=== PATIENT | female | born 1935 | race Caucasian/White ===

== ENCOUNTER → 2018-12-07 14:46 | Day surgery (SDC) | payer MEDICARE, BC ==
[~2018-12-07 14:46] MED LIST: Lidocaine 2% PF * 5 ML VIAL ONE; Propofol* 10 MG/ML 20 ML BTL ONE; Sodium Citrate/Citric Acid* 15 ML UDC ONE; Succinylcholine* 20 MG/ML 10 ML VIAL ONE; ceFAZolin 2 GM in NS PREMIX(*) 2 GM/100 ML BAG IVPB ONE; fentaNYL* 50 MCG/ML 2 ML VIAL (100 MCG VIAL) ONE
[2018-12-07 19:10] VITALS: BP 139/80
--- NOTE | 2018-12-08 03:38 | OP ---
ATE OF OPERATION: 12/07/18 - [facility] DATE OF : 37 SURGEON: Isacc Guerra MD OIL FIELD PUMPER: ALFREDA Hopson. A physician clothing sales assistant was required for assistance with patient positioning and manipulation. ANESTHESIOLOGIST: Dr. Edward Encinas. PRE-OP DIAGNOSIS: Left shoulder anterior glenohumeral joint dislocation, subacute. POST-OP DIAGNOSIS: Left shoulder anterior glenohumeral joint dislocation, subacute. OPERATIVE PROCEDURE: Closed relocation with manipulation, left shoulder glenohumeral joint, using general anesthesia. ANTIBIOTICS: None. IV FLUIDS: See Anesthesia note. PROCEDURE LENGTH: 5 to 10 minutes. COMPLICATIONS: None. SPECIMEN: None. IMPLANTS: None. ESTIMATED BLOOD LOSS: None. INDICATIONS FOR PROCEDURE: The patient is an 83-year-old woman, right-hand dominant, who lives alone, with likely some early dementia, who has two daughters who live in the area, who sustained a shoulder injury somewhere between 12/01/18 and 12/03/18 with a fall in the yard at home. The patient eventually agreed to see a doctor and was seen by her primary care physician on 12/05/18. X-rays revealed a shoulder anterior dislocation and the patient was referred to my clinic where she presented on 12/06/18. We made the diagnosis of an anterior glenohumeral joint dislocation, subacute, with a posterior Hill-Sachs impaction fracture humerus. I placed the patient in a sling, and we scheduled surgery for today. DESCRIPTION OF PROCEDURE: In the preoperative holding, the patient's daughter, a healthcare proxy, signed a written consent. Operative extremity was marked in preoperative holding. I consented for a closed versus open relocation of the left shoulder glenohumeral joint. The plan was to only cut skin and perform an open relocation as needed and this was not likely to be needed. The patient was taken back to the operating room and placed supine on the operating room table. The patient was sedated and intubated. The patient was maximally relaxed and paralyzed. A surgical time-out was performed. I performed a single relocation maneuver. I did not yet note change in deformity. I performed a second relocation maneuver and the shoulder easily relocated. I noticed a change in contour of the shoulder. I brought a C-arm in and obtained an AP view that showed concentric relocation of the shoulder. Due to patient positioning, it was difficult to obtain an excellent axillary lateral or Velpeau view. The patient was awakened, extubated, and brought to the PACU. DISPOSITION: The patient had been placed in a sling in the operating room. In the PACU, the patient had three x-ray views of the left shoulder which included Velpeau view as well as scapular Y and Grashey AP views. All showed excellent concentrically located glenohumeral joint. The Velpeau or axillary lateral view demonstrated a significant posterior humeral head Hill-Sachs impaction fracture. The patient was discharged home. She is to wear the sling all day and night. She will take Tylenol as needed for pain. The patient will follow up with me in one week in clinic. [id number]/CPS #: [id number] MTDD
== END | disposition home or self-care (01) ==
LOC: OR 14:46
PROVIDERS: ATTEND Orthopaedic Surgery
DX: S43.015A Anterior dislocation of left humerus, initial encounter (principal); W19.XXXA Unspecified fall, initial encounter; Y92.096 Garden or yard of other non-institutional residence as the place of occurrence of the external cause; I25.2 Old myocardial infarction; I10 Essential (primary) hypertension; E78.5 Hyperlipidemia, unspecified; R73.03 Prediabetes; Z95.5 Presence of coronary angioplasty implant and graft; Z79.82 Long term (current) use of aspirin; F03.90 Unspecified dementia, unspecified severity, without behavioral disturbance, psychotic disturbance, mood disturbance, and anxiety
CPT/HCPCS: 76000; A9270-GY; J0330; J0690; J2704; J3010